=== PATIENT | female | born 1985 | race Caucasian/White ===

== ENCOUNTER 2021-04-12 18:07 | Emergency (ER) | payer OTHER ==
[2021-04-12] MEDS ORDERED: Sodium Chloride 0.9% 1,000 ML IV SCH (19:30)
--- NOTE | 2021-04-12 20:38 | CRLUS ---
INDICATION: Second-trimester contractions. TECHNIQUE: Ultrasound OB pelvis transabdominal. Real-time barber-scale imaging of the fetus was performed as well as color Doppler and spectral Doppler analysis of the umbilical artery. COMPARISON: None. FINDINGS: Sonographic imaging demonstrates a single living intrauterine gestation. Fetus demonstrates a regular cardiac rate of 163 beats per minute. Fetus has a breech orientation. The placenta lies posterior without evidence of placenta previa. Amniotic fluid volume appears normal with an RYAN of 11 cm. Cervix measures 2.9 cm in length. IMPRESSION: 1.Single viable intrauterine . 2.No abnormality seen. No sign of placenta previa or abruption. Dictated by Hong Cedeno MD @ 04/12/2021 8:38:01 PM Dictated by: Hong Cedeno MD @ 04/12/2021 20:38:09 (Electronically Signed)
--- NOTE | 2021-04-12 20:48 | EDM.PDOC ---
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 baby is active. was worried and came in for evaluations denies any fever or chills denies any vaginal leaking of fluids, spotting, or discharge care by Toya Zurita, Nurse Mid-, has had routine OB care and one OB ultrasound at 8 weeks, no complications with this . Onset: Gradual Onset Date: 04/10/21 Duration: Day(s):, Intermittent Location: Reports: Abdomen Quality: Reports: Pressure Severity: Mild Improves with: Reports: None Worsens with: Reports: None Context: Reports: Other ( at 19.5 weeks) Associated Symptoms: Reports: No Other Symptoms - Related Data Allergies Allergy/AdvReac Type Severity Reaction Status Date / Time sulfamethoxazole Allergy Other Verified 04/12/21 19:27 [From Bactrim] trimethoprim [From Bactrim] Allergy Other Verified 04/12/21 19:27 Home Meds: Home Meds Cetirizine [ZyrTEC] 1 tab PO DAILY 04/12/21 [History] Vit #76/Iron,Carb/Fa [Pnv 29-1 Tablet] 1 tab PO DAILY 04/12/21 [History] lamoTRIgine [Lamictal] 1 tab PO BID 04/12/21 [History] Past Medical History : 4 Para: 3 LMP (Approximate): (19.5 weeks. ) Dermatologic History: Reports: Other (See Below) Other Dermatologic History: hives to abdomen - - Infectious Disease History Infectious Disease History: Reports: Chicken Pox Social & Family History - Tobacco Use Tobacco Use Status *Q: Unknown Ever Used Tobacco - Caffeine Use Caffeine Use: Reports: None - Recreational Drug Use Recreational Drug Use: No - Living Situation & Occupation Living situation: Reports: Occupation: Employed (lives with family. works at home.) ED ROS GENERAL - Review of Systems Review Of Systems: See Below Constitutional: Reports: Other (reports contractions for the past two days. ). Denies: Fever, Chills, Malaise HEENT: Reports: No Symptoms Respiratory: Reports: No Symptoms Cardiovascular: Reports: No Symptoms Endocrine: Reports: No Symptoms GI/Abdominal: Reports: Abdominal Pain, Other () : Reports: No Symptoms Musculoskeletal: Reports: No Symptoms Skin: Reports: No Symptoms Neurological: Reports: No Symptoms Psychiatric: Reports: No Symptoms Hematologic/Lymphatic: Reports: No Symptoms Immunologic: Reports: No Symptoms ED EXAM, GENERAL - Physical Exam Exam: See Below Exam Limited By: No Limitations General Appearance: Alert, WD/WN, No Apparent Distress, Other (, neat and well groomed, no distress, pleasant) Ears: Normal External Exam Throat/Mouth: Normal Inspection Head: Atraumatic, Normocephalic Neck: Normal Inspection, Supple, Non-Tender Respiratory/Chest: No Respiratory Distress, Lungs Clear, Normal Breath Sounds Cardiovascular: Regular Rate, Rhythm, No Murmur GI/Abdominal: Normal Bowel Sounds, Soft, Non-Tender, Other ( with heart tones 160's) (Female) Exam: Deferred Rectal (Female) Exam: Deferred Back Exam: Normal Inspection, Full Range of Motion Extremities: Normal Inspection, Normal Range of Motion, Non-Tender, Normal Capillary Refill, No Pedal Edema Neurological: Alert, Oriented, CN II-XII Intact, Normal Cognition, Normal Gait, Normal Reflexes, No Motor/Sensory Deficits Psychiatric: Normal Affect, Normal Mood Skin Exam: Warm, Dry, Intact, Normal Color, No Rash Lymphatic: No Adenopathy Course - Vital Signs Last Recorded V/S: Last Vital Signs Temp 98.7 F 04/12/21 19:33 Pulse 105 H 04/12/21 19:33 Resp 18 04/12/21 19:33 BP 179/84 H 04/12/21 19:33 Pulse Ox 98 04/12/21 19:33 - Orders/Labs/Meds Labs: Laboratory Tests 04/12/21 04/12/21 04/12/21 Range/Units 19:22 19:22 19:30 WBC 10.3 (4.5-11.0) K/uL RBC 4.70 (3.30-5.50) M/uL Hgb 14.0 (12.0-15.0) g/dL Hct 41.7 (36.0-48.0) % MCV 89 (80-98) fL MCH 30 (27-31) pg MCHC 34 (32-36) % Plt Count 275 (150-400) K/uL Neut % (Auto) 69.6 H (36-66) % Lymph % (Auto) 20.4 L (24-44) % [place] % (Auto) 7.4 H (2-6) % Eos % (Auto) 2.4 (2-4) % Baso % (Auto) 0.2 (0-1) % Sodium 142 (140-148) mmol/L Potassium 3.1 L (3.6-5.2) mmol/L Chloride 105 (100-108) mmol/L Carbon Dioxide 23 (21-32) mmol/L Anion Gap 17.1 H (5.0-14.0) mmol/L BUN 10 (7-18) mg/dL Creatinine 0.6 (0.6-1.0) mg/dL Est Cr Clr Drug Dosing 122.51 mL/min Estimated GFR (MDRD) > 60 (>60) Glucose 109 H (74-106) mg/dL Calcium 9.1 (8.5-10.1) mg/dL Total Bilirubin 0.3 (0.2-1.0) mg/dL AST 21 (15-37) U/L ALT 41 (12-78) U/L Alkaline Phosphatase 84 (46-116) U/L Total Protein 7.0 (6.4-8.2) g/dL Albumin 3.4 (3.4-5.0) g/dL Globulin 3.6 H (2.3-3.5) g/dL Albumin/Globulin Ratio 0.9 L (1.2-2.2) Urine Color Yellow (YELLOW) Urine Appearance Clear (CLEAR) Urine pH 6.0 (5.0-8.0) Ur Specific [place] 1.015 (1.008-1.030) Urine Protein Negative (NEGATIVE) mg/dL Urine Glucose (UA) Negative (NEGATIVE) mg/dL Urine Ketones Trace H (NEGATIVE) mg/dL Urine Occult Blood Negative (NEGATIVE) Urine Nitrite Negative (NEGATIVE) Urine Bilirubin Negative (NEGATIVE) Urine Urobilinogen 0.2 (0.2-1.0) EU/dL Ur Leukocyte Esterase Negative (NEGATIVE) Urine RBC 0-5 (0-5) Urine WBC 0-5 (0-5) Ur Epithelial Cells Few Amorphous Sediment Occasional Urine Bacteria Occasional Urine Mucus Rare Meds: Medications Discontinued Medications Generic Name Dose Route Start Last Admin Trade Name Ingris PRN Reason Stop Dose Admin Sodium Chloride 1,000 mls @ 999 mls/hr 04/12/21 19:30 04/12/21 19:20 Normal Saline IV 999 mls/hr ASDIRECTED [facility] Administration - Re-Assessments/Exams Free Text/Narrative Re-Assessment/Exam: 04/12/21 discussed with Mrs. Back -IV fluids Normal Saline 1 liter -labs - CBC, CMP, WET PREP to rule out any acute process -OB ultrasound to evaluate baby, placenta, fluid, and cervix -consult with OB at bedside with Mrs. Back agrees with plan of care ER Course -IV fluids one liter Normal Saline -labs CBC normal, CMP Potassium low at 3.1 - discussed potassium rich foods, Wet Prep show bacterial vaginosis- will treat with Flagyl 500mg po bid x 7 days, urine with micro no infection noted +ketones -OB Ultrasound- viable fetus at 19 weeks 2 days, heart tones at 160, no placenta previa, cervix is thick and closed. no concerns. -consult with OB advised to have work up in ER and treat as needed -no further contractions in ER -will discharge to home with follow next Saturday with OB Provider -advised to return to ER if has any concerns or return of symptoms. Departure - Departure Time of Disposition: 21:06 Disposition: Home, Self-Care 01 Condition: Good Clinical Impression: Bacterial vaginosis, Uterine contractions during - Discharge Information *PRESCRIPTION DRUG MONITORING PROGRAM REVIEWED*: Not Applicable *COPY OF PRESCRIPTION DRUG MONITORING REPORT IN PATIENT TARI: Not Applicable Instructions: Bacterial Vaginosis, [id number] Referrals: Toya Zurita CNM [Primary Care Provider] - Forms: ED Department Discharge Care Plan Goals: Bacterial Vaginosis in -Flagyl 500 mg by mouth two times a day for 7 days -push fluids Uterine Contractions before 20 weeks gestation -rest -push fluids and eat 3 meals a day plus snacks -pelvic rest -return to ER for any increase pain, leaking of fluids, spotting, fever, chills or any concerns. Follow up with OB Provider next week as scheduled. Return to ER if has any concerns or changes. Sepsis Event Note (ED) - Evaluation Sepsis Screening Result: No Definite Risk - Focused Exam Vital Signs: Vital Signs Temp Pulse Resp BP Pulse Ox 04/12/21 19:33 98.7 F 105 H 18 179/84 H 98 04/12/21 19:11 98.7 F 105 H 18 179/84 H 98 - Problem List & Annotations (1) Bacterial vaginosis SNOMED Code(s): 718424217 Code(s): N76.0 - ACUTE VAGINITIS; B96.89 - OTH BACTERIAL AGENTS THE CAUSE OF DISEASES CLASSD [id number] Status: Acute Priority: High (2) Uterine contractions during SNOMED Code(s): 885736494 Code(s): O62.2 - OTHER UTERINE INERTIA Status: Acute Priority: High - Problem List Review Problem List Initiated/Reviewed/Updated: Yes - Assessment/Plan Plan: Bacterial Vaginosis in -Flagyl 500 mg by mouth two times a day for 7 days -push fluids Uterine Contractions before 20 weeks gestation -rest -push fluids and eat 3 meals a day plus snacks -pelvic rest -return to ER for any increase pain, leaking of fluids, spotting, fever, chills or any concerns. Follow up with OB Provider next week as scheduled. Return to ER if has any concerns or changes.
== END 2021-04-12 21:06 | disposition home or self-care (01) ==
LOC: JP.ED 18:07
DX: O23.592 Infection of other part of genital tract in pregnancy, second trimester (principal); N85.8 Other specified noninflammatory disorders of uterus; B96.89 Other specified bacterial agents as the cause of diseases classified elsewhere; Z3A.19 19 weeks gestation of pregnancy
CPT/HCPCS: 36415; 76815; 80053; 81001; 85025; 87210; 99284; J7030; 99283

== ENCOUNTER 2021-09-01 15:38 | Inpatient (IN) | payer OTHER ==
[2021-09-01 16:54] LABS: CORONAVIRUS COVID-19 NAA NEGATIVE (NEGATIVE)
[2021-09-01] MEDS ORDERED: Ondansetron 4 MG/2 ML SDV IV PRN (18:11)
[2021-09-01] MEDS ORDERED: Calcium Carbonate 500 MG Tab.Chew PO PRN (18:11)
[2021-09-01] MEDS ORDERED: Sodium Chloride 0.9% 10 ML Syringe FLUSH PRN (18:11)
--- NOTE | 2021-09-01 18:22 | PCM.LDHP ---
L&D History of Present Illness - General Date of Service: 09/01/21 Admit Problem/Dx: Patient Status Order with Admit Dx/Problem 09/01/21 16:15 Admission Status [Patient Status] [ADT] Routine Admission Diagnosis/Problem Admission Diagnosis/Problem Labor established Source of Information: Patient History Limitations: Reports: No Limitations - History of Present Illness Introduction:: 09/01/21 Hyun is a 36 yo 39 4/7 weeks here with early labor. She started ajay this afternoon around 1330 and they progressively became closer together and stronger. She arrived here late afternoon and was 3-4 cm per nursing. Patient walked for a couple of hours and upon reexamination had changed her cervix. She is on lamictal in this and a vitamin. She is rubella immune, GBS negative, O positive blood type, RPR/Hep B/C/HIV all NR. She has had an uncomplicated other than being AMA. They are expecting a baby boy. She declines IV fluids, third stage management (unless necessary for bleeding), and erythromycin for baby. She plans for a natural labor but is open to using nitrous oxide. Timing/Duration: Reports: minutes: (2-3) Location, : Reports: Abdomen Severity: Mild Improves with: Reports: None Worsens with: Reports: None Associated Symptoms: Denies: vaginal bleeding - Related Data Allergies/Adverse Reactions: Allergies Allergy/AdvReac Type Severity Reaction Status Date / Time sulfamethoxazole Allergy Other Verified 04/12/21 19:27 [From Bactrim] trimethoprim [From Bactrim] Allergy Other Verified 04/12/21 19:27 Home Medications: Home Meds Vit #76/Iron,Carb/Fa [Pnv 29-1 Tablet] 1 tab PO DAILY 04/12/21 [History] Loratadine [Claritin] 1 tab PO DAILY PRN 07/15/21 [History] lamoTRIgine [Lamictal] 100 mg PO BID 09/01/21 [History] Past Medical History HEENT History: Reports: None 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 (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): Psychiatric History: Reports: Depression Dermatologic History: Reports: Other (See Below) Other Dermatologic History: hives to abdomen - - Infectious Disease History Infectious Disease History: Reports: Chicken Pox - Past Surgical History HEENT Surgical History: Reports: Other (See Below) Other HEENT Surgeries/Procedures: wisdom teeth extraction Social & Family History - Family History Family Medical History: No Pertinent Family History - Tobacco Use Tobacco Use Status *Q: Never Tobacco User Second Hand Smoke Exposure: No - Caffeine Use Caffeine Use: Reports: Coffee - Recreational Drug Use Recreational Drug Use: No - Living Situation & Occupation Living situation: Reports: Occupation: Employed (lives with family. works at home.) H&P Review of Systems - Review of Systems: Review Of Systems: See Below General: Reports: No Symptoms HEENT: Reports: No Symptoms Pulmonary: Reports: No Symptoms Cardiovascular: Reports: No Symptoms Gastrointestinal: Reports: No Symptoms Genitourinary: Reports: No Symptoms Musculoskeletal: Reports: No Symptoms Skin: Reports: No Symptoms Psychiatric: Reports: No Symptoms Neurological: Reports: No Symptoms Hematologic/Lymphatic: Reports: No Symptoms Immunologic: Reports: No Symptoms L&D Exam - Exam Exam: See Below - Vital Signs Weight: 91.172 kg - OB Specific Contraction Intensity: Mild to Moderate Movement: Active Heart Tones: Present Heart Tones per Min: 140 Heart Rate (FHR) Variability: Moderate (6-25 bpm) Presentation: Vertex Estimated Weight: 8 lb - Sands Score Sands Score Cervix Position: Midposition Sands Score Consistency: Soft Sands Score Effacement: 51-70% Sands Score Dilation: 3-4 cm Sands Score Infant's Station: -2 Sands Score Total: 8 - Exam General: Alert, Oriented HEENT: PERRLA, Conjunctiva Clear, Mucosa Moist & Tetherow, Posterior Pharynx Clear, Pupils Equal, Pupils Reactive Neck: Supple, Trachea Midline Lungs: Clear to Auscultation, Normal Respiratory Effort Cardiovascular: Regular Rate, Regular Rhythm GI/Abdominal Exam: Normal Bowel Sounds, Soft, Non-Tender, Pelvis Stable Rectal Exam: Normal Exam Genitourinary: Normal external exam, Cervical dilitation, Enlarged uterus Back Exam: Normal Inspection, Full Range of Motion Extremities: Normal Inspection, No Pedal Edema Skin: Warm, Dry, Intact Neurological: Cranial Nerves Intact Psychiatric: Alert, Normal Affect, Normal Mood - Patient Data Lab Results Last 24 hrs: Laboratory Results - last 24 hr 09/01/21 09/01/21 09/01/21 Range/Units 16:11 16:14 16:33 WBC (4.5-11.0) K/uL RBC (3.30-5.50) M/uL Hgb (12.0-15.0) g/dL Hct (36.0-48.0) % MCV (80-98) fL MCH (27-31) pg MCHC (32-36) % Plt Count (150-400) K/uL Neut % (Auto) (36-66) % Lymph % (Auto) (24-44) % [place] % (Auto) (2-6) % Eos % (Auto) (2-4) % Baso % (Auto) (0-1) % Urine Color Yellow (YELLOW) Urine Appearance Clear (CLEAR) Urine pH 6.0 (5.0-8.0) Ur Specific [place] <= 1.005 L (1.008-1.030) Urine Protein Negative (NEGATIVE) mg/dL Urine Glucose (UA) Negative (NEGATIVE) mg/dL Urine Ketones Negative (NEGATIVE) mg/dL Urine Occult Blood Negative (NEGATIVE) Urine Nitrite Negative (NEGATIVE) Urine Bilirubin Negative (NEGATIVE) Urine Urobilinogen 0.2 (0.2-1.0) EU/dL Ur Leukocyte Esterase Trace H (NEGATIVE) Urine RBC Not seen (0-5) Urine WBC 0-5 (0-5) Ur Epithelial Cells Few Amorphous Sediment Not seen Urine Bacteria Not seen Urine Mucus Not seen Urine Opiates Screen Negative (NEGATIVE) Ur Oxycodone Screen Negative (NEGATIVE) Urine Methadone Screen Negative (NEGATIVE) Ur Propoxyphene Screen Negative (NEGATIVE) Ur Barbiturates Screen Negative (NEGATIVE) Ur Tricyclics Screen Negative (NEGATIVE) Ur Phencyclidine Scrn Negative (NEGATIVE) Ur Amphetamine Screen Negative (NEGATIVE) U Methamphetamines Scrn Negative (NEGATIVE) Urine MDMA Screen Negative (NEGATIVE) U Benzodiazepines Scrn Negative (NEGATIVE) U Cocaine Metab Screen Negative (NEGATIVE) U Marijuana (THC) Screen Negative (NEGATIVE) Influenza Type A RNA Negative (NEGATIVE) RSV RNA (INAAT) Negative (NEGATIVE) Influenza Type B RNA Negative (NEGATIVE) SARS-CoV-2 RNA (SHARON) Negative (NEGATIVE) 09/01/21 Range/Units 16:43 WBC 10.6 (4.5-11.0) K/uL RBC 4.77 (3.30-5.50) M/uL Hgb 14.3 (12.0-15.0) g/dL Hct 41.8 (36.0-48.0) % MCV 88 (80-98) fL MCH 30 (27-31) pg MCHC 34 (32-36) % Plt Count 229 (150-400) K/uL Neut % (Auto) 72.0 H (36-66) % Lymph % (Auto) 18.5 L (24-44) % [place] % (Auto) 8.0 H (2-6) % Eos % (Auto) 1.4 L (2-4) % Baso % (Auto) 0.1 (0-1) % Urine Color (YELLOW) Urine Appearance (CLEAR) Urine pH (5.0-8.0) Ur Specific [place] (1.008-1.030) Urine Protein (NEGATIVE) mg/dL Urine Glucose (UA) (NEGATIVE) mg/dL Urine Ketones (NEGATIVE) mg/dL Urine Occult Blood (NEGATIVE) Urine Nitrite (NEGATIVE) Urine Bilirubin (NEGATIVE) Urine Urobilinogen (0.2-1.0) EU/dL Ur Leukocyte Esterase (NEGATIVE) Urine RBC (0-5) Urine WBC (0-5) Ur Epithelial Cells Amorphous Sediment Urine Bacteria Urine Mucus Urine Opiates Screen (NEGATIVE) Ur Oxycodone Screen (NEGATIVE) Urine Methadone Screen (NEGATIVE) Ur Propoxyphene Screen (NEGATIVE) Ur Barbiturates Screen (NEGATIVE) Ur Tricyclics Screen (NEGATIVE) Ur Phencyclidine Scrn (NEGATIVE) Ur Amphetamine Screen (NEGATIVE) U Methamphetamines Scrn (NEGATIVE) Urine MDMA Screen (NEGATIVE) U Benzodiazepines Scrn (NEGATIVE) U Cocaine Metab Screen (NEGATIVE) U Marijuana (THC) Screen (NEGATIVE) Influenza Type A RNA (NEGATIVE) RSV RNA (INAAT) (NEGATIVE) Influenza Type B RNA (NEGATIVE) SARS-CoV-2 RNA (SHARON) (NEGATIVE) Result Diagrams: 09/01/21 16:43 - Problem List (1) Term SNOMED Code(s): 62658776 ICD Code: Z34.90 - ENCNTR FOR SUPRVSN OF NORMAL , UNSP, UNSP TRIMESTER Status: Acute Current Visit: Yes (2) Advanced maternal age (AMA) in SNOMED Code(s): 054262011 ICD Code: UTU2725 - Status: Acute Current Visit: Yes (3) Labor established SNOMED Code(s): 60603222 ICD Code: [id number] - Status: Acute Current Visit: Yes Problem List Initiated/Reviewed/Updated: Yes Orders Last 24hrs: Active Orders 24 hr Category Date Time Status Admission Status [Patient Status] [ADT] Routine ADT 09/01/21 16:15 Active Communication Order [RC] ASDIRECTED Care 09/01/21 18:11 Ordered Heart Tones [RC] PER UNIT ROUTINE Care 09/01/21 18:11 Ordered Notify Provider Vital Signs [RC] PRN Care 09/01/21 18:12 Ordered Notify Provider [RC] PRN Care 09/01/21 18:11 Ordered OB Check [OM.PC] Click to Edit Care 09/01/21 16:10 Ordered Up ad Emeli [RC] ASDIRECTED Care 09/01/21 18:11 Ordered VTE/DVT Education [RC] Click to Edit Care 09/01/21 18:12 Ordered Vital Signs [RC] PER UNIT ROUTINE Care 09/01/21 18:11 Ordered Regular Diet [DIET] Diet 09/01/21 Dinner Ordered Calcium Carbonate [Tums] Med 09/01/21 18:11 Ordered 1,000 mg PO Q2HR PRN Ondansetron [Zofran] Med 09/01/21 18:11 Ordered 4 mg IV Q4H PRN Sodium Chloride 0.9% [Saline Flush] Med 09/01/21 18:11 Ordered 10 ml FLUSH ASDIRECTED PRN DVT/VTE Prophylaxis Reflex [OM.PC] Routine Oth 09/01/21 18:11 Ordered Saline Lock Insert [OM.PC] Routine Oth 09/01/21 18:11 Ordered Resuscitation Status Routine Resus Stat 09/01/21 18:11 Ordered Medication Orders Calcium Carbonate/Glycine (Calcium Carbonate 500 Mg Tab.Chew) 1,000 mg PO Q2HR PRN PRN Reason: Indigestion Ondansetron HCl (Ondansetron 4 Mg/2 Ml Sdv) 4 mg IV Q4H PRN PRN Reason: Nausea/Vomiting Sodium Chloride (Sodium Chloride 0.9% 10 Ml Syringe) 10 ml FLUSH ASDIRECTED PRN PRN Reason: Keep Vein Open Assessment/Plan Comment:: 09/01/21 Assessment: at 39 4/7 weeks with spontaneous onset of labor Cervical change from arrival, now 4.5/80/-2 Patient requesting AROM if possible so this was done with last cervical check, fluid clear O positive blood type rubella immune Category 1 tracing Plan: Monitor labor progression Declines pitocin for third stage management unless bleeding Declines IV fluids in labor Would like to possibly use nitrous oxide for pain control Anticipate
--- NOTE | 2021-09-01 23:10 | PCM.PNLD ---
Labor Progress Note - VS & Meds Vital Signs: Last Vital Signs Temp 36.6 C 09/01/21 16:20 Pulse 82 09/01/21 16:20 Resp 16 09/01/21 16:20 BP 122/75 09/01/21 16:20 Pulse Ox 97 09/01/21 16:20 Active Medications: Current Medications Calcium Carbonate/Glycine (Calcium Carbonate 500 Mg Tab.Chew) 1,000 mg PO Q2H PRN PRN Reason: Indigestion Oxytocin/Sodium Chloride (Pitocin In Ns 20 Units/1,000 Ml) 20 unit in 1,000 mls @ 6 mls/hr IV TITRATE ELIA; Protocol Ondansetron HCl (Ondansetron 4 Mg/2 Ml Sdv) 4 mg IV Q4H PRN PRN Reason: Nausea/Vomiting Sodium Chloride (Sodium Chloride 0.9% 10 Ml Syringe) 10 ml FLUSH ASDIRECTED PRN PRN Reason: Keep Vein Open Discontinued Medications Oxytocin/Sodium Chloride (Pitocin In Ns 20 Units/1,000 Ml) Confirm Administered Dose 20 unit in 1,000 mls @ as directed .ROUTE .STK-MED ONE Stop: 09/01/21 18:33 - Uterine Contractions Uterine Monitoring Mode: External [place] Contraction Frequency (min): 0.5 - 9 Contraction Duration (sec): 30 - 135 Contraction Intensity: Moderate Uterine Resting Tone: Soft - Monitoring Monitor Mode: External Ultrasound Heart Rate (FHR) Baseline: 135 Heart Rate (FHR) Variability: Moderate (6-25 bpm) Accelerations: Present, 15x15 Decelerations: None Strip Review: Category I - Vaginal Exam Dilation (cm): 5 Effacement (Percent): 80 Station: 0 Cervical Position: Anterior Sterile Vaginal Exam Performed By: Toya Zurita - Labor Progress (Free Text) Labor Progress: 09/01/21 AROM performed just before 1800 today. Cervix mainly unchanged from that time. Contractions have not increased much in intensity or timing. Discussed options for labor augmentation vs expectant management. Patient would like to augment and after discussing pitocin and using low dose she agrees to this. Will start pitocin at 2 mu and increase by 1 mu every 30-45 min.
[2021-09-02] MEDS ORDERED: Lidocaine 1% 50 ML MDV ONE (03:07)
[2021-09-02] MEDS ORDERED: Lanolin 100% Cream 40 GM Tube TOP PRN (03:48)
[2021-09-02] MEDS ORDERED: Ibuprofen 200 MG Tab, 24 Tab Bulk Bottle PO PRN (03:48)
[2021-09-02] MEDS ORDERED: Acetaminophen 325 MG Tab, 50 Tab Bulk Bottle PO PRN (03:48)
--- NOTE | 2021-09-02 04:23 | PCM.DEL ---
L & D Note - General Info Date of Service: 09/02/21 Mother's Due Date: 09/04/21 - Delivery Note Labor: Spontaneous, Augmented by ARM, Augmented by Oxytocin Cervical Ripening Method: Oxytocin Delivery Outcome: Livebirth Delivery Method: Spontaneous Vaginal Delivery-Single Infant Delivery Mode: Manual Presentation: Left Occiput Anterior (TEO) Nuchal Cord: Present Anesthesia Type: Nitrous Oxide Amniotic Fluid Description: Clear Episiotomy Type: None Laceration: None Placenta: Intact, Spontaneous Cord: 3 Vessels Estimated Blood Loss: 250 Resuscitation Needed: No : Suctioned, Bulb Syringe, Stimulated, Warmed, Warmer Used Provider: denisse smart Score 1 min: 7 Score 5 min: 9 Second Stage Interventions: Reports: Encouragement Given, Pushing Effectively, Pushing, McRobert's Position, Pushing, Pulls Own Legs Back, Pushing, Squatting, Other (see below) (hands and knees) Delivery Comments (Free Text/Narrative):: 09/02/21 35 G4 now P4 delivered viable male at 0240 at 39 5/7 weeks gestation. She had slower progress in early labor and so pitocin was started for augmentation after she had been 5 cm for 4 hours. The pitocin was shut off per her request once active labor started. She dilated from there on without other intervention. She used nitrous oxide for pain control. She was complete at 0217 and had the urge to push. She began pushing on her hands and knees and moved baby very well. Head delivered at 0238, 1 loose nuchal cord reduced. She was unable to push the rest of the baby out on her hands and knees even with trying the "running start" movement. Mother was turned onto her back and put in McRobert's position. Shoulder still would not release. The next move attempted due to time lapsed was delivery of the posterior arm which released the shoulder immediately and baby was put on mothers chest. Cord was clamped and cut fairly quick after delivery and baby was brought to the warmer. He cried spontaneously there and immediately pinked up with stimulation. Apgars 7, 8. Placenta delivered spontaneously intact with a 3 vessel cord, healthy appearing. There were no vaginal, cervical, or perineal lacerations. EBL 250 ml. Baby boy 9 lb 7 oz. Total time of shoulder ~2 minutes (somewhere between 1-2 minutes, exact times not noted). FF and bleeding is light. Mother declined pitocin for third stage management. Stages of labor: 1: 5560-1749 2: 3381-8415 3: 1905-7274 Induction Criteria - Augmentation Estimated Pelvis: Reports: Adequate Weight Estimated:: Reports: AGA Estimated Weight if LGA: 3.856 kg Reassuring Monitoring Strip: Yes Absence of Tachy Systole: Yes - General Info Date of Service: 09/02/21 Functional Status: Reports: Pain Controlled - Review of Systems General: Reports: No Symptoms HEENT: Reports: No Symptoms Pulmonary: Reports: No Symptoms Cardiovascular: Reports: No Symptoms Gastrointestinal: Reports: No Symptoms Genitourinary: Reports: No Symptoms Musculoskeletal: Reports: No Symptoms Skin: Reports: No Symptoms Neurological: Reports: No Symptoms Psychiatric: Reports: No Symptoms - Patient Data Vitals - Most Recent: Last Vital Signs Temp 36.6 C 09/01/21 16:20 Pulse 75 09/01/21 23:41 Resp 16 09/01/21 16:20 BP 110/68 09/01/21 23:41 Pulse Ox 97 09/01/21 16:20 Weight - Most Recent: 91.172 kg Lab Results Last 24 Hours: Laboratory Results - last 24 hr 09/01/21 09/01/21 09/01/21 Range/Units 16:11 16:14 16:33 WBC (4.5-11.0) K/uL RBC (3.30-5.50) M/uL Hgb (12.0-15.0) g/dL Hct (36.0-48.0) % MCV (80-98) fL MCH (27-31) pg MCHC (32-36) % Plt Count (150-400) K/uL Neut % (Auto) (36-66) % Lymph % (Auto) (24-44) % [place] % (Auto) (2-6) % Eos % (Auto) (2-4) % Baso % (Auto) (0-1) % Urine Color Yellow (YELLOW) Urine Appearance Clear (CLEAR) Urine pH 6.0 (5.0-8.0) Ur Specific [place] <= 1.005 L (1.008-1.030) Urine Protein Negative (NEGATIVE) mg/dL Urine Glucose (UA) Negative (NEGATIVE) mg/dL Urine Ketones Negative (NEGATIVE) mg/dL Urine Occult Blood Negative (NEGATIVE) Urine Nitrite Negative (NEGATIVE) Urine Bilirubin Negative (NEGATIVE) Urine Urobilinogen 0.2 (0.2-1.0) EU/dL Ur Leukocyte Esterase Trace H (NEGATIVE) Urine RBC Not seen (0-5) Urine WBC 0-5 (0-5) Ur Epithelial Cells Few Amorphous Sediment Not seen Urine Bacteria Not seen Urine Mucus Not seen Urine Opiates Screen Negative (NEGATIVE) Ur Oxycodone Screen Negative (NEGATIVE) Urine Methadone Screen Negative (NEGATIVE) Ur Propoxyphene Screen Negative (NEGATIVE) Ur Barbiturates Screen Negative (NEGATIVE) Ur Tricyclics Screen Negative (NEGATIVE) Ur Phencyclidine Scrn Negative (NEGATIVE) Ur Amphetamine Screen Negative (NEGATIVE) U Methamphetamines Scrn Negative (NEGATIVE) Urine MDMA Screen Negative (NEGATIVE) U Benzodiazepines Scrn Negative (NEGATIVE) U Cocaine Metab Screen Negative (NEGATIVE) U Marijuana (THC) Screen Negative (NEGATIVE) Influenza Type A RNA Negative (NEGATIVE) RSV RNA (INAAT) Negative (NEGATIVE) Influenza Type B RNA Negative (NEGATIVE) SARS-CoV-2 RNA (SHARON) Negative (NEGATIVE) 09/01/21 Range/Units 16:43 WBC 10.6 (4.5-11.0) K/uL RBC 4.77 (3.30-5.50) M/uL Hgb 14.3 (12.0-15.0) g/dL Hct 41.8 (36.0-48.0) % MCV 88 (80-98) fL MCH 30 (27-31) pg MCHC 34 (32-36) % Plt Count 229 (150-400) K/uL Neut % (Auto) 72.0 H (36-66) % Lymph % (Auto) 18.5 L (24-44) % Ramsey % (Auto) 8.0 H (2-6) % Eos % (Auto) 1.4 L (2-4) % Baso % (Auto) 0.1 (0-1) % Urine Color (YELLOW) Urine Appearance (CLEAR) Urine pH (5.0-8.0) Ur Specific [place] (1.008-1.030) Urine Protein (NEGATIVE) mg/dL Urine Glucose (UA) (NEGATIVE) mg/dL Urine Ketones (NEGATIVE) mg/dL Urine Occult Blood (NEGATIVE) Urine Nitrite (NEGATIVE) Urine Bilirubin (NEGATIVE) Urine Urobilinogen (0.2-1.0) EU/dL Ur Leukocyte Esterase (NEGATIVE) Urine RBC (0-5) Urine WBC (0-5) Ur Epithelial Cells Amorphous Sediment Urine Bacteria Urine Mucus Urine Opiates Screen (NEGATIVE) Ur Oxycodone Screen (NEGATIVE) Urine Methadone Screen (NEGATIVE) Ur Propoxyphene Screen (NEGATIVE) Ur Barbiturates Screen (NEGATIVE) Ur Tricyclics Screen (NEGATIVE) Ur Phencyclidine Scrn (NEGATIVE) Ur Amphetamine Screen (NEGATIVE) U Methamphetamines Scrn (NEGATIVE) Urine MDMA Screen (NEGATIVE) U Benzodiazepines Scrn (NEGATIVE) U Cocaine Metab Screen (NEGATIVE) U Marijuana (THC) Screen (NEGATIVE) Influenza Type A RNA (NEGATIVE) RSV RNA (INAAT) (NEGATIVE) Influenza Type B RNA (NEGATIVE) SARS-CoV-2 RNA (SHARON) (NEGATIVE) Med Orders - Current: Current Medications Acetaminophen (Acetaminophen 325 Mg Tab, 50 Tab Bulk Bottle) 0 mg PO Q4H PRN PRN Reason: Pain Calcium Carbonate/Glycine (Calcium Carbonate 500 Mg Tab.Chew) 1,000 mg PO Q2H PRN PRN Reason: Indigestion Last Admin: 09/02/21 02:12 Dose: 1,000 mg Documented by: Docusate Sodium (Docusate Sodium 100 Mg Cap) 100 mg PO BID PRN PRN Reason: Constipation Emollient Ointment (Lanolin 100% Cream 40 Gm Tube) 1 gm TOP ASDIRECTED PRN PRN Reason: Sore Nipples Oxytocin/Sodium Chloride (Pitocin In Ns 20 Units/1,000 Ml) 20 unit in 1,000 mls @ 6 mls/hr IV TITRATE ELIA; Protocol Last Titration: 09/02/21 00:38 Dose: 1 munits/min, 3 mls/hr Documented by: Ibuprofen (Ibuprofen 200 Mg Tab, 24 Tab Bulk Bottle) 600 mg PO Q6H PRN PRN Reason: Pain Ondansetron HCl (Ondansetron 4 Mg/2 Ml Sdv) 4 mg IV Q4H PRN PRN Reason: Nausea/Vomiting Sodium Chloride (Sodium Chloride 0.9% 10 Ml Syringe) 10 ml FLUSH ASDIRECTED PRN PRN Reason: Keep Vein Open Discontinued Medications Oxytocin/Sodium Chloride (Pitocin In Ns 20 Units/1,000 Ml) Confirm Administered Dose 20 unit in 1,000 mls @ as directed .ROUTE .STK-MED ONE Stop: 09/01/21 18:33 Last Admin: 09/01/21 23:16 Dose: Not Given Documented by: - Exam General: Alert, Oriented HEENT: Pupils Equal, Pupils Reactive, Mucous Membr. Moist/[place] Neck: Supple Lungs: Clear to Auscultation, Normal Respiratory Effort Cardiovascular: Regular Rate, Regular Rhythm GI/Abdominal Exam: Normal Bowel Sounds, Soft, No Organomegaly, Pelvis Stable (Female) Exam: Normal External Exam, Normal Bimanual Exam, Cervical Dilatation, Enlarged Uterus Back Exam: Normal Inspection, Full Range of Motion Extremities: Normal Inspection, Normal Range of Motion, Non-Tender, No Pedal Edema Skin: Warm, Dry, Intact Neurological: No New Focal Deficit Psy/Mental Status: Alert, Normal Affect, Normal Mood - Problem List & Annotations (1) Term SNOMED Code(s): 14918967 Code(s): Z34.90 - ENCNTR FOR SUPRVSN OF NORMAL , UNSP, UNSP TRIMESTER Status: Acute Current Visit: Yes (2) Advanced maternal age (AMA) in SNOMED Code(s): 296715418 Code(s): AEN8528 - Status: Acute Current Visit: Yes (3) Labor established SNOMED Code(s): 19484804 Code(s): BJZ0698 - Status: Acute Current Visit: Yes (4) Vaginal delivery SNOMED Code(s): 841436136 Code(s): O80 - ENCOUNTER FOR FULL-TERM UNCOMPLICATED DELIVERY Status: Acute Current Visit: Yes (5) started SNOMED Code(s): 972924103 Code(s): AFD9103 - Status: Acute Current Visit: Yes - Problem List Review Problem List Initiated/Reviewed/Updated: Yes - My Orders Last 24 Hours: My Active Orders 09/01/21 16:10 OB Check [OM.PC] Click To Edit 09/01/21 16:15 Admission Status [Patient Status] [ADT] Routine 09/01/21 Dinner Regular Diet [DIET] 09/01/21 18:11 Communication Order [RC] ASDIRECTED Notify Provider [RC] PRN Up ad Emeli [RC] ASDIRECTED Vital Signs [RC] PER UNIT ROUTINE Calcium Carbonate [Tums] 1,000 mg PO Q2H PRN Ondansetron [Zofran] 4 mg IV Q4H PRN Sodium Chloride 0.9% [Saline Flush] 10 ml FLUSH ASDIRECTED PRN DVT/VTE Prophylaxis Reflex [OM.PC] Routine Saline Lock Insert [OM.PC] Routine Resuscitation Status Routine 09/01/21 18:12 Notify Provider Vital Signs [RC] PRN VTE/DVT Education [RC] Click to Edit 09/01/21 23:15 Oxytocin/Normal Saline [Pitocin in NS 20 Units/1,000 ML] 20 unit in 1,000 ml IV TITRATE 09/02/21 00:01 Nitrous Oxide Delivery [RC] ASDIRECTED 09/02/21 03:48 Patient Status [ADT] Routine May Shower [RC] ASDIRECTED Vital Signs [RC] PFP Consult to Senior Security Engineer [CONS] Routine Acetaminophen [Tylenol Bulk Bottle] See Dose Instructions PO Q4H PRN Docusate Sodium [Colace] 100 mg PO BID PRN Ibuprofen [Motrin Bulk Bottle] 600 mg PO Q6H PRN Lanolin [Lansinoh HPA] 1 gm TOP ASDIRECTED PRN Assess Lochia [WOMSER] Per Unit Routine Assess Uterine Involution [WOMSER] Per Unit Routine 09/02/21 03:49 Ice Therapy [OM.PC] Per Unit Routine Perineal Care [OM.PC] Per Unit Routine Sitz Bath [OM.PC] Per Unit Routine 09/02/21 12:00 CBC WITH AUTO DIFF [HEME] Routine - Assessment Assessment:: 09/02/21 with vaginal at 39 5/7 weeks No vaginal or perineal lacerations Shoulder dystocia at delivery <2 minutes FF - Plan Plan:: 09/01/21 Assessment: at 39 4/7 weeks with spontaneous onset of labor Cervical change from arrival, now 4.5/80/-2 Patient requesting AROM if possible so this was done with last cervical check, fluid clear O positive blood type rubella immune Category 1 tracing Plan: Monitor labor progression Declines pitocin for third stage management unless bleeding Declines IV fluids in labor Would like to possibly use nitrous oxide for pain control Anticipate 09/02/21 Routine cares support Anticipate 24-48 hour stay
[2021-09-02] MEDS: Docusate Sodium 100 MG Cap PO PRN (20:16)
[2021-09-03] MEDS: Docusate Sodium 100 MG Cap PO PRN (08:34)
--- NOTE | 2021-09-03 09:22 | PCM.PNPP ---
- General Info Date of Service: 09/03/21 Functional Status: Reports: Pain Controlled - Review of Systems General: Reports: No Symptoms HEENT: Reports: No Symptoms Pulmonary: Reports: No Symptoms Cardiovascular: Reports: No Symptoms Gastrointestinal: Reports: No Symptoms Genitourinary: Reports: No Symptoms Musculoskeletal: Reports: No Symptoms Skin: Reports: No Symptoms Neurological: Reports: No Symptoms Psychiatric: Reports: No Symptoms - General Info Date of Service: 09/03/21 - Patient Data Vital Signs - Most Recent: Last Vital Signs Temp 36.1 C 09/03/21 07:00 Pulse 60 09/03/21 07:00 Resp 16 09/03/21 07:00 BP 105/61 09/03/21 07:00 Pulse Ox 96 09/03/21 07:00 Weight - Most Recent: 91.172 kg I&O - Last 24 Hours: Intake & Output 09/02/21 09/03/21 09/03/21 22:59 06:59 14:59 Intake Total 2100 Balance 2100 Lab Results - Last 24 Hours: Laboratory Results - last 24 hr 09/02/21 Range/Units 12:13 WBC 15.0 H (4.5-11.0) K/uL RBC 4.16 (3.30-5.50) M/uL Hgb 13.0 (12.0-15.0) g/dL Hct 37.4 (36.0-48.0) % MCV 90 (80-98) fL MCH 31 (27-31) pg MCHC 35 (32-36) % Plt Count 220 (150-400) K/uL Add Manual Diff Yes Neutrophils % (Manual) 79 H (36-66) % Lymphocytes % (Manual) 13 L (24-44) % Monocytes % (Manual) 8 H (2-6) % Med Orders - Current: Current Medications Acetaminophen (Acetaminophen 325 Mg Tab, 50 Tab Bulk Bottle) 0 mg PO Q4H PRN PRN Reason: Pain Last Admin: 09/02/21 07:54 Dose: 650 mg Documented by: Calcium Carbonate/Glycine (Calcium Carbonate 500 Mg Tab.Chew) 1,000 mg PO Q2H PRN PRN Reason: Indigestion Last Admin: 09/02/21 02:12 Dose: 1,000 mg Documented by: Docusate Sodium (Docusate Sodium 100 Mg Cap) 100 mg PO BID PRN PRN Reason: Constipation Last Admin: 09/03/21 08:34 Dose: 100 mg Documented by: Emollient Ointment (Lanolin 100% Cream 40 Gm Tube) 1 gm TOP ASDIRECTED PRN PRN Reason: Sore Nipples Ibuprofen (Ibuprofen 200 Mg Tab, 24 Tab Bulk Bottle) 600 mg PO Q6H PRN PRN Reason: Pain Last Admin: 09/02/21 07:53 Dose: 600 mg Documented by: Ondansetron HCl (Ondansetron 4 Mg/2 Ml Sdv) 4 mg IV Q4H PRN PRN Reason: Nausea/Vomiting Sodium Chloride (Sodium Chloride 0.9% 10 Ml Syringe) 10 ml FLUSH ASDIRECTED PRN PRN Reason: Keep Vein Open Discontinued Medications Oxytocin/Sodium Chloride (Pitocin In Ns 20 Units/1,000 Ml) Confirm Administered Dose 20 unit in 1,000 mls @ as directed .ROUTE .[place] Cell ONE Stop: 09/01/21 18:33 Last Admin: 09/01/21 23:16 Dose: Not Given Documented by: Oxytocin/Sodium Chloride (Pitocin In Ns 20 Units/1,000 Ml) 20 unit in 1,000 mls @ 6 mls/hr IV TITRATE ELIA; Protocol Last Titration: 09/02/21 00:38 Dose: 1 munits/min, 3 mls/hr Documented by: Lidocaine HCl (Lidocaine 1% 50 Ml Mdv) Confirm Administered Dose 50 ml .ROUTE .M-KOPA-MED ONE Stop: 09/02/21 03:08 Last Admin: 09/02/21 09:19 Dose: Not Given Documented by: - Interaction Disposition, : [place] in Room with Family Infant Interaction: Holding Infant Feeding: Breastfed ; Nursed Well Support Person: - Recovery Exam Fundal Tone: Firm Fundal Level: At Umbilicus Fundal Placement: Midline Lochia Amount: Small Lochia Color: Rubra/Red Perineum Description: Intact, Minimal Bruising/Swelling Episiotomy/Laceration: None Bladder Status: Voiding Urinary Elimination: Voided - Exam General: Alert, Oriented HEENT: Pupils Equal, Pupils Reactive, Mucous Membr. Moist/[place] Neck: Supple Lungs: Clear to Auscultation, Normal Respiratory Effort Cardiovascular: Regular Rate, Regular Rhythm GI/Abdominal Exam: Normal Bowel Sounds, Soft, Non-Tender, Pelvis Stable Extremities: Normal Inspection, Normal Range of Motion, Non-Tender, No Pedal Edema Skin: Warm, Dry, Intact Neurological: No New Focal Deficit Psy/Mental Status: Alert, Normal Affect, Normal Mood - Problem List & Annotations (1) Term SNOMED Code(s): 23865481 Code(s): Z34.90 - ENCNTR FOR SUPRVSN OF NORMAL , UNSP, UNSP TRIMESTER Status: Acute Current Visit: Yes (2) Advanced maternal age (AMA) in SNOMED Code(s): 077592875 Code(s): XBM5091 - Status: Acute Current Visit: Yes (3) Labor established SNOMED Code(s): 67369771 Code(s): IBS5874 - Status: Acute Current Visit: Yes (4) Vaginal delivery SNOMED Code(s): 374766047 Code(s): O80 - ENCOUNTER FOR FULL-TERM UNCOMPLICATED DELIVERY Status: Acute Current Visit: Yes (5) started SNOMED Code(s): 732002288 Code(s): JZG5508 - Status: Acute Current Visit: Yes - Problem List Review Problem List Initiated/Reviewed/Updated: Yes - Assessment Assessment:: 09/02/21 with vaginal at 39 5/7 weeks No vaginal or perineal lacerations Shoulder dystocia at delivery <2 minutes FF 09/03/21 PP day 1, no complications going very well Pain controlled Hgb 13.0, AVSS Ready for discharge - Plan Plan:: 09/01/21 Assessment: at 39 4/7 weeks with spontaneous onset of labor Cervical change from arrival, now 4.5/80/-2 Patient requesting AROM if possible so this was done with last cervical check, fluid clear O positive blood type rubella immune Category 1 tracing Plan: Monitor labor progression Declines pitocin for third stage management unless bleeding Declines IV fluids in labor Would like to possibly use nitrous oxide for pain control Anticipate 09/02/21 Routine cares support Anticipate 24-48 hour stay 09/03/21 Discharge home today 6 week exam
== END 2021-09-03 11:58 | disposition home or self-care (01) | DRG 807 ==
LOC: JP.OBCHECK 15:38 → JP.OB 15:42 → JP.OBCHECK 16:14 → JP.OB 16:15 → OBSVTOIN 09-02 02:40 → JP.MS 09-02 06:35
PROVIDERS: ADMIT Advanced Practice Midwife; ATTEND Advanced Practice Midwife
PROC: 10E0XZZ Delivery of Products of Conception, External Approach (ICD-10-PCS; principal; 2021-09-02)
PROC: 3E033VJ Introduction of Other Hormone into Peripheral Vein, Percutaneous Approach (ICD-10-PCS; 2021-09-02)
PROC: 10907ZC Drainage of Amniotic Fluid, Therapeutic from Products of Conception, Via Natural or Artificial Opening (ICD-10-PCS; 2021-09-02)
PROC: 4A1HXCZ Monitoring of Products of Conception, Cardiac Rate, External Approach (ICD-10-PCS; 2021-09-02)
DX: O69.81X0 Labor and delivery complicated by cord around neck, without compression, not applicable or unspecified (principal); Z37.0 Single live birth; Z3A.39 39 weeks gestation of pregnancy; Z20.822 Contact with and (suspected) exposure to COVID-19
CPT/HCPCS: 0241U; 36415; 80305-QW; 81001; 85025; 99211; A9270-GY; J2590